=== PATIENT | male | born 1975 | race Two or more races ===

== ENCOUNTER 2018-02-15 06:12 | Day surgery (SDC) | payer OTHER ==
[2018-02-14 13:38] VITALS: BMI 29.7
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
[2018-02-15] MEDS ORDERED: MIDAZOLAM HCL 2 MG/2 ML SINGLE DOSE VIAL ONE ×2 (07:11→08:12)
[2018-02-15] MEDS ORDERED: ROCURONIUM BROMIDE 50 MG/5 ML VIAL ONE (07:11)
[2018-02-15] MEDS ORDERED: fentaNYL CITRATE 250 MCG/5 ML VIAL ONE (07:11)
[2018-02-15] MEDS ORDERED: PROPOFOL 20 ML ONE (07:11)
[2018-02-15] MEDS ORDERED: DEXAMETHASONE SOD PHOSPHATE 4 MG/1 ML VIAL ONE (07:12)
[2018-02-15] MEDS ORDERED: LIDOCAINE HCL/PF 2% SDV 5ML VIAL ONE (07:12)
[2018-02-15] MEDS ORDERED: DESFLURANE GAS 240 ML BOTTLE IH ONE (07:18)
--- NOTE | 2018-02-15 07:40 | HP ---
History & Physical Update - History History: No Change - Physical Physical: No Change Currently as noted:: sutures now removed from right brow laceration, healing well - Assessment Assessment: No Change - Plan Plan: No Change
[2018-02-15] MEDS ORDERED: COCAINE HCL 4% TOPICAL SOLUTION 4 ML BOTTLE TP ONE ×2 (07:49→08:08)
[2018-02-15] MEDS ORDERED: ONDANSETRON 4 MG/2 ML VIAL IVPUSH PRN (08:05)
[2018-02-15] MEDS ORDERED: oxyCODONE HCL 5 MG TABLET PO PRN ×2 (08:05)
[2018-02-15] MEDS ORDERED: LACTATED RINGERS SOLUTION 1,000 ML IV SCH (08:15)
[2018-02-15] MEDS ORDERED: BENZOIN TINCTURE SWABSTICK TP ONE (08:17)
[2018-02-15] MEDS ORDERED: BENZOIN/ALOE VERA/STORAX/TOLU 58 ML BOTTLE TP ONE (08:20)
--- NOTE | 2018-02-15 08:27 | OP ---
Operative Note - Note: Operative Date: 02/15/18 ([id number]) Pre-Operative Diagnosis: nasal fracture, displaced. deviated septum Operation: closed reduction of nasal fracture with stabilization Findings: displaced nasal fracture to left with septal deviation to right superiorly, fixed Post-Operative Diagnosis: Same as Pre-op Surgeon: Zenon Rodriguez Anesthesiologist/COOK FROZEN DESSERT: Willie Rodriguez Anesthesia: General, Fractional, MAC Estimated Blood Loss (mls): 0 Blood Volume Replaced (mls): 0 Operative Report Dictated: Yes
[2018-02-15 09:39] VITALS: TEMP 98
[2018-02-15 11:28] VITALS: BP 137/90; PULSE 61
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
== END 2018-02-15 11:28 | disposition home or self-care (01) ==
LOC: JASU-SURG 06:12
PROVIDERS: ATTEND Otolaryngology
PROC: 0NSBXZZ Reposition Nasal Bone, External Approach (ICD-10-PCS; principal; 2018-02-15 07:30)
DX: S02.2XXA Fracture of nasal bones, initial encounter for closed fracture (principal); J34.2 Deviated nasal septum; X58.XXXA Exposure to other specified factors, initial encounter; Y93.9 Activity, unspecified; Y92.9 Unspecified place or not applicable; Y99.9 Unspecified external cause status
CPT/HCPCS: 94760

== ENCOUNTER 2018-04-16 10:55 | Emergency (ER) | payer OTHER ==
[2018-04-16 11:15] VITALS: BMI 29.5
[2018-04-16] MEDS ORDERED: ONDANSETRON 4 MG TABLET PO ONE (11:34)
[2018-04-16] MEDS ORDERED: MECLIZINE HCL 25 MG TABLET (FP) PO ONE (11:34)
[2018-04-16] MEDS ORDERED: MECLIZINE HCL 25 MG TABLET (FP) ONE (11:59)
[2018-04-16] MEDS ORDERED: ONDANSETRON *ODT* 4 MG TABLET ONE (11:59)
[2018-04-16] MEDS ORDERED: ACETAMINOPHEN 325 MG TABLET (FP) PO ONE (12:00)
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
[2018-04-16] MEDS ORDERED: ACETAMINOPHEN 325 MG TABLET (FP) ONE (12:03)
[2018-04-16 12:23] VITALS: BP 143/77; PULSE 79; TEMP 98.1
--- NOTE | 2018-04-17 15:41 | EKG ---
Test Reason : Blood Pressure : / mmHG Vent. Rate : 070 BPM Atrial Rate : 070 BPM P-R Int : 178 ms QRS Dur : 090 ms QT Int : 378 ms P-R-T Axes : 031 028 023 degrees QTc Int : 408 ms SINUS RHYTHM WITH MARKED SINUS ARRHYTHMIA EARLY REPOLARIZATION OTHERWISE NORMAL ECG NO PREVIOUS ECGS AVAILABLE Confirmed by FRANCHESCA CASTAÑEDA MD ([id number]) on 04/17/2018 3:41:19 PM Referred By: Confirmed By:FRANCHESCA CASTAÑEDA MD
== END 2018-04-16 12:23 | disposition home or self-care (01) ==
LOC: JER 10:55
DX: H81.391 Other peripheral vertigo, right ear (principal)
CPT/HCPCS: 93005; 93010; 99282-25